=== PATIENT | male | born 1965 | race Caucasian/White ===

== ENCOUNTER 2017-03-17 21:10 | Emergency (ER) | payer OTHER ==
--- NOTE | 2017-03-17 21:25 | EDPHY ---
H & P Stated Complaint: HR monitor has been going off since yesterday; hypertensive at [facility] HPI/ROS: CHIEF COMPLAINT: Elevated heart rate and blood pressure. HISTORY OF PRESENT ILLNESS: This patient is a 52 year old male with history of hypertension complaining of elevated heart rate and blood pressure onset yesterday afternoon. He is visiting from [place] and flew to [place] yesterday. While waiting for his flight , his Apple Watch notified him of an elevated heart rate, over 120 bpm. By dinner, it had returned to normal, around 70-80 bpm. He felt well last night. This morning while having breakfast, his Apple Watch notified him again of elevated heart rate. This has persisted throughout the day, and he felt some left-sided back pain. He endorses occasional dizziness today, but he is not currently lightheaded. He has not had any syncopal episodes. He went to [facility] to use their blood pressure monitor and noted his blood pressure was elevated at 157/113. His hypertension is generally well controlled with Lisinopril. He denies chest pain or shortness of breath. He does not have pain or swelling in his calves. He denies recent illness, no cough, cold symptoms, abdominal pain, vomiting, diarrhea, melena, hematochezia, or other associated symptoms. REVIEW OF SYSTEMS: A ten point review of systems was performed and is negative with the exception of the items mentioned in the HPI. Past medical history: 1. Hypertension (Lisinopril 5mg qd) 2. Environmental allergies. 3. History of asthma (childhood) Past surgical history: 1. Orthopedic (right wrist) 2. Tonsillectomy 3. Varicocele repair Family history: Noncontributory. Social history: Visiting from [place], originally from [place]. Nonsmoker. Drinks alcohol, 3-4 beers per day. Works in sales. General Appearance: Alert. Vital signs reviewed. Blood pressure 152/107, heart rate 123 at triage. Eyes: Pupils equal and round, no conjunctival injection, no discharge. Anicteric. ENT, Mouth: Mucous membranes are moist, no oropharyngeal erythema or edema. Neck: No lymphadenopathy, supple. Respiratory: Lungs are clear to auscultation; no wheezes, rales, or rhonchi. Cardiovascular: Regular tachycardia; no murmur, rub, or gallop. Gastrointestinal: Abdomen is soft and nontender, no masses or organomegaly, bowel sounds normal. Skin: Warm and dry, no rashes on exposed skin, normal color. Back: Nontender to palpation over the thoracolumbar spine. No CVAT. Extremities: No lower extremity edema, no calf tenderness or swelling. Neurological: Alert and oriented. Moving all four extremities easily and equally. Psychiatric: Normal affect. - Personal History Current Tetanus/Diphtheria Vaccine: Yes - Medical/Surgical History Hx Asthma: Yes Hx Chronic Respiratory Disease: No Hx Diabetes: No Hx Cardiac Disease: No Hx Renal Disease: No Hx Cirrhosis: No Hx Alcoholism: No Hx HIV/AIDS: No Hx Splenectomy or Spleen Trauma: No Other PMH: PMHx: hypertension, hayfever, childhood asthma. PSHx: R hand, varicocele, tonsillectomy - Social History Smoking Status: Never smoked Constitutional: Initial Vital Signs Temperature (C) 36.9 C 03/17/17 21:14 Heart Rate 123 H 03/17/17 21:14 Respiratory Rate 20 03/17/17 21:14 Blood Pressure 152/107 H 03/17/17 21:14 O2 Sat (%) 96 03/17/17 21:14 O2 Delivery Mode Room Air Allergies/Adverse Reactions: No Known Allergies Allergy (Unverified 03/17/17 21:13) Home Medications: Medication Instructions Recorded Lisinopril 03/17/17 Metoprolol Tartrate 25 mg PO ACHS #10 tablet 03/17/17 Medical Decision Making - Diagnostics EKG Interpretation: The 12 lead EKG was interpreted by myself. See hard copy and/or "tracemaster" electronic copy for interpretation. Sinus tachycardia, rate 115. Probable ROBIN and right axis deviation. ED Course/Re-evaluation: This patient is a 52 year old male presenting with tachycardia and hypertension. He takes Lisinopril 5 mg orally for his hypertension and took this this morning. His blood pressure is usually well controlled. He is asymptomatic. He was re-evaluated at 22:25 p.m.. Lab work is normal including troponin and D- dimer. His TSH is elevated at 5.4. Chest x-ray is negative for acute pulmonary disease. Heart size is at the upper limit of normal on the chest x- ray. He continues to be tachycardic with a heart rate of 118. Will try Metoprolol 5 mg IV. At this point in time his sinus tachycardia is unexplained. There is no evidence of volume loss/depletion, he is not febrile. He denies the use of any stimulant medications. 22:40 The patient's heart rate and blood pressure are now within normal limits. HR 90, BP 131/85. Plan to consult with cardiology. 23:[address] Trinidad, industrial maintenance technician. Recommends Holter monitor, prescription for 25mg Metoprolol to take at night. 23:18 Reassessed patient. Discussed follow up and industrial maintenance technician's recommendations. Patient is not interested in hospitalization. He will be following up in [place], where he lives. Plan to discharge home in good condition. He is comfortable with this plan. Danger signs reviewed. Differential Diagnosis: DDX includes but is not limited to hypertensive urgency/emergency, tachycardia secondary to fever, volume loss, PE, ACS, hyperthyroid, stimulant use. - Data Points Laboratory Results: Laboratory Results 03/17/17 21:35 03/17/17 21:35 Medications Given: Discontinued Medications Sodium Chloride (Ns) 1,000 mls @ 0 mls/hr IV ONCE ONE PRN Reason: Wide Open Stop: 03/17/17 21:40 Last Admin: 03/17/17 21:39 Dose: 1,000 mls Sodium Chloride (Ns) 1,000 mls @ 0 mls/hr IV EDNOW ONE; Wide Open PRN Reason: Protocol Stop: 03/17/17 21:39 Last Admin: 03/17/17 21:41 Dose: Not Given Metoprolol Tartrate (Lopressor Injection) 5 mg IVP EDNOW ONE Stop: 03/17/17 22:28 Last Admin: 03/17/17 22:32 Dose: 5 mg Departure - Departure Disposition: Home, Routine, Self-Care Clinical Impression: Tachycardia Hypertension Qualifiers: Hypertension type: essential hypertension Qualified Code(s): I10 - Essential ( primary) hypertension Condition: Good Instructions: Metoprolol (By mouth), Hypertension (ED), Tachycardia (ED) Additional Instructions: 1. Follow up with your primary care provider or industrial maintenance technician when you return to [place]. We suggest you get a Holter monitor to track your heart rate. 2. Take Metoprolol in the evenings as prescribed. 3. Return to the emergency department for repeat episodes of rapid heart rate, chest pain, shortness of breath, severe headache, or other worsening of condition. Referrals: LEO RAMIREZ [Other] - As per Instructions Lj Trinidad MD [Medical Doctor] - As per Instructions Prescriptions: Metoprolol Tartrate 25 mg PO ACHS #10 tablet Report Scribed for: Roxanne Mcmahon Report Scribed by: Varsha Henry Date of Report: 03/17/17 Time of Report: 21:37 Physician Review and Approval Statement: 03/17/17 21:25 Portions of this note were transcribed by the medical center director. I, Dr. Roxanne Mcmahon, personally performed the history, physical exam, and medical decision- making; and confirmed the accuracy of the information in the transcribed note.
--- NOTE | 2017-03-17 21:26 | CPEKG ---
Heart Rate: 115 RR Interval: 522 P-R Interval: 164 QRSD Interval: 94 QT Interval: 328 QTC Interval: 454 P [place]: 25 QRS [place]: 102 T Wave [place]: 11 EKG Severity - BORDERLINE ECG - EKG Impression: SINUS TACHYCARDIA EKG Impression: PROBABLE LEFT ATRIAL ABNORMALITY EKG Impression: RIGHT AXIS DEVIATION Electronically Signed By: Roxanne Mcmahon 17-Mar-2017 21:58:05
[2017-03-17] MEDS ORDERED: NS 1,000 ML IV ONE ×2 (21:38→21:39)
[2017-03-17 21:42] VITALS: RESP 16
[2017-03-17 21:44] LABS: % IMMATURE GRANULYOCYTES 0.5 % (0.0-1.1); ABSOLUTE IMMATURE GRANULOCYTES 0.04 10^3/uL (0.00-0.10); ADD DIFF? NO; ADD MORPH? NO; ADD SCAN? NO; ATYPICAL LYMPHOCYTE FLAG 0 (0-99); FRAGMENT RBC FLAG 0 (0-99); HEMATOCRIT 45.4 % (40.0-51.0); HEMOGLOBIN 15.9 g/dL (13.7-17.5); LEFT SHIFT FLG 0 (0-99); LIPEMIA HEMOLYSIS FLAG 90 (0-99); MEAN CELL HEMOGLOBIN 31.2 pg (27.9-34.1); MEAN PLATELET VOLUME 9.5 fL (8.7-11.7); PLATELET CLUMPS FLAG 10 (0-99); PLATELET COUNT 295 10^3/uL (150-400); RED CELL DISTRIBUTION WIDTH 13.1 % (11.5-15.2)
[2017-03-17 21:56] LABS: ANION GAP 16 mEq/L (8-16); CALCIUM 10.4 mg/dL (8.5-10.4); CARBON DIOXIDE 23 mEq/l (22-31); CHLORIDE 100 mEq/L (97-110); CREATININE 1.1 mg/dL (0.7-1.3); GLOMERULAR FILTRATION RATE > 60; GLUCOSE 103 mg/dL (70-100); POTASSIUM 3.9 mEq/L (3.5-5.2); SODIUM 139 mEq/L (134-144)
[2017-03-17 22:08] LABS: TROPONIN I < 0.012 ng/mL (0.000-0.034)
[2017-03-17] MEDS ORDERED: METOPROLOL TARTRATE 5 MG/5 ML INJ IVP ONE (22:27)
[2017-03-17 22:39] VITALS: O2SAT 95
[2017-03-17 23:25] VITALS: BP 147/89; PULSE 89; TEMP 97.9
== END 2017-03-17 23:25 | disposition home or self-care (01) ==
DX: I10 Essential (primary) hypertension (principal); R00.0 Tachycardia, unspecified; J45.909 Unspecified asthma, uncomplicated; E86.9 Volume depletion, unspecified
CPT/HCPCS: 96374